=== PATIENT | male | born 1985 | race Caucasian/White ===

== ENCOUNTER → 2019-08-25 | Outpatient (REF) ==
--- NOTE | 2019-08-25 15:06 | REP ---
Left knee five views : There is no fracture or dislocation. Mineralization and joint spaces are normal. There are no calcifications or foreign bodies. Impression: Negative left knee . Electronically Signed by Micheal Hamm MD 08/25/2019 02:57 P
== END ==
LOC: M SMT 13:39
PROVIDERS: ATTEND Internal Medicine
DX: Z02.71 Encounter for disability determination (principal)